=== PATIENT | male | born 1975 | race Caucasian/White ===

== ENCOUNTER 2017-01-16 15:22 | Emergency (ER) | payer MEDICAID, MEDICARE ==
--- NOTE | 2017-01-16 16:17 | ER Document Report ---
HPI - HPI Patient complains to provider of: Red painful nose Onset: This morning Onset/Duration: Gradual Pain Level: 5 Context: 41-year-old male woke up this morning with a red painful nose mostly on the left side including the nostril. No nasal drugs. No history of MRSA. No fever or body aches. Associated Symptoms: None Exacerbated by: Movement Relieved by: Denies Similar symptoms previously: No Recently seen / treated by doctor: No - ROS ROS below otherwise negative: Yes Systems Reviewed and Negative: Yes All other systems reviewed and negative - CARDIOVASCULAR Cardiovascular: DENIES: Chest pain - DERM Skin Color: Normal Past Medical History - General Information source: Patient - Social History Smoking Status: Current Every Day Smoker Chew tobacco use (# tins/day): No Frequency of alcohol use: None Drug Abuse: None Lives with: Family Family History: Reviewed & Not Pertinent Patient has suicidal ideation: No Patient has homicidal ideation: No Renal/ Medical History: Reports: Hx Kidney Stones. Denies: Hx Peritoneal Dialysis Past Surgical History: Reports: Hx Tonsillectomy Vertical Provider Document - CONSTITUTIONAL Agree With Documented VS: Yes Exam Limitations: No Limitations General Appearance: No Apparent Distress - INFECTION CONTROL TRAVEL OUTSIDE OF THE [place] IN LAST 30 DAYS: No - HEENT HEENT: Normocephalic Notes: tender red, warm lower 1/3 of external nose, more tender and darker red left nostril, no abscess palpated or seen with nasal exam. no extension to facial skin. - NECK Neck: Supple. negative: Lymphadenopathy-Left, Lymphadenopathy-Right - RESPIRATORY Respiratory: Breath Sounds Normal, No Respiratory Distress - CARDIOVASCULAR Cardiovascular: Regular Rate, Regular Rhythm Course - Re-evaluation Re-evalutation: 01/16/17 18:00 white count 17,000 with minimal neut shift (79.9) - Laboratory Result Diagrams: 01/16/17 16:45 01/16/17 16:45 Discharge - Discharge Clinical Impression: Nose cellulitis Condition: Good Disposition: HOME, SELF-CARE Instructions: Cellulitis ([facility]), Clindamycin ([facility]), Bactroban Ointment ([facility]) Additional Instructions: warm compress antibiotics three times per day bactroban ointment three times per day return for recheck tomorrow,sooner if fever, spreading to your cheeks Please complete the patient satisfaction survey if you get one, and return it.. If you do not receive a survey, then you can go to the [facility] website, [email or web address] and place your comments about your very good care. Thank you very much. It was a pleasure being your medical provider today. Prescriptions: Clindamycin HCl [Cleocin 150 mg Capsule] 300 mg PO TID #42 capsule Forms: Return to Work
[2017-01-16] MEDS ORDERED: CLINDAMYCIN PHOSPHATE INJ 300 MG/2 ML SDV IV ONE (16:23)
[2017-01-16] MEDS ORDERED: CLINDAMYCIN 600 MG/D5W RTU 600 MG/50 ML RTUPB IV ONE (16:45)
[2017-01-16 17:01] LABS: ABSOLUTE BASOPHILS # (AUTO) 0.1 10^3/uL (0.0-0.2); ABSOLUTE EOSINOPHILS # (AUTO) 0.1 10^3/uL (0.0-0.6); ABSOLUTE LYMPHOCYTES (AUTO) 1.9 10^3/uL (0.5-4.7); ABSOLUTE MONOCYTES (AUTO) 1.3 10^3/uL (0.1-1.4); ABSOLUTE NEUT (AUTO) 13.8 10^3/uL (1.7-8.2); BASOPHILS % (AUTO) 0.7 % (0-2); EOSINOPHILS % (AUTO) 0.7 % (0-6); HEMATOCRIT 53.8 % (37.9-51.0); HEMOGLOBIN 17.8 g/dL (13.5-17.0); HGB HCT DIFFERENCE -0.4; LYMPHOCYTES % (AUTO) 11.1 % (13-45); MEAN CORPUSCULAR HEMOGLOBIN 30.2 pg (27.0-33.4); MEAN CORPUSCULAR HGB CONC 33.1 g/dL (32.0-36.0); MEAN CORPUSCULAR VOLUME 91 fl (80-97); MONOCYTES % (AUTO) 7.6 % (3-13); SEGMENTED NEUTROPHILS % (AUTO) 79.9 % (42-78); WHITE BLOOD COUNT 17.3 10^3/uL (4.0-10.5)
[2017-01-16 17:16] LABS: ALANINE AMINOTRANSFERASE 53 U/L (21-72); ALBUMIN 4.6 g/dL (3.5-5.0); ALKALINE PHOSPHATASE 100 U/L (38-126); ANION GAP 12 (5-19); ASPARTATE AMINO TRANSFERASE 28 U/L (17-59); BILIRUBIN,DIRECT 0.3 mg/dL (0.0-0.4); BILIRUBIN,TOTAL 0.8 mg/dL (0.2-1.3); BLOOD UREA NITROGEN 10 mg/dL (7-20); CARBON DIOXIDE 29 mmol/L (22-30); CHLORIDE 99 mmol/L (98-107); CREATININE RESULT 1.04 mg/dL (0.52-1.25); GLUCOSE 89 mg/dL (75-110); POTASSIUM 4.4 mmol/L (3.6-5.0); SODIUM 140.3 mmol/L (137-145); TOTAL PROTEIN 7.9 g/dL (6.3-8.2)
[2017-01-16] MEDS ORDERED: MUPIROCIN 2% OINTMENT 22 GM TP ONE (17:24)
[2017-01-16 17:52] VITALS: BP 125/77
== END 2017-01-16 18:00 | disposition home or self-care (01) ==
LOC: ER 15:22
DX: J34.0 Abscess, furuncle and carbuncle of nose (principal); J34.89 Other specified disorders of nose and nasal sinuses; F17.200 Nicotine dependence, unspecified, uncomplicated
CPT/HCPCS: 99283; 96365; 36415; 85025; 80053; A9270; J3490

== ENCOUNTER 2017-01-17 12:08 | Emergency (ER) | payer MEDICARE ==
[2017-01-17 12:13] VITALS: BP 125/84
[2017-01-17] MEDS ORDERED: IBUPROFEN 800 MG TABLET PO ONE (12:32)
--- NOTE | 2017-01-17 12:33 | ER Document Report ---
HPI - HPI Patient complains to provider of: Recheck Onset: Yesterday Onset/Duration: Better Quality of pain: No pain Pain Level: Denies Context: Patient states that he was evaluated yesterday for cellulitis involving his nose. Patient denies any trauma to the nose or any insect bites or source of infection. Patient states that he has taken a total of 5 doses of his antibiotic and feels that his nose tenderness, redness and swelling have improved as compared to yesterday. Patient states that he was advised to return here for recheck today from the provider that saw him yesterday. Patient denies any history of MRSA. Associated Symptoms: Other - Nose tenderness, redness Exacerbated by: Denies Relieved by: Denies Similar symptoms previously: No Recently seen / treated by doctor: Yes - ROS ROS below otherwise negative: Yes Systems Reviewed and Negative: Yes All other systems reviewed and negative - CONSTITUTIONAL Constitutional: DENIES: Fever, Chills - EENT Notes: Tenderness, redness to nose - NEURO Neurology: DENIES: Headache, Weakness - GASTROINTESTINAL Gastrointestinal: DENIES: Nausea, Patient vomiting - MUSCULOSKELETAL Musculoskeletal: DENIES: Back Pain, Neck Pain - DERM Skin Color: Erythema Skin Problems: None Past Medical History - General Information source: Patient - Social History Smoking Status: Current Every Day Smoker Frequency of alcohol use: None Drug Abuse: None Occupation: None Lives with: Family Family History: Reviewed & Not Pertinent Patient has suicidal ideation: No Patient has homicidal ideation: No - Medical History Medical History: Other - Partially blind Renal/ Medical History: Reports: Hx Kidney Stones. Denies: Hx Peritoneal Dialysis Past Surgical History: Reports: Hx Tonsillectomy, Other - Ocular surgery Vertical Provider Document - CONSTITUTIONAL Agree With Documented VS: Yes Exam Limitations: No Limitations General Appearance: WD/WN, No Apparent Distress - INFECTION CONTROL TRAVEL OUTSIDE OF THE [place] IN LAST 30 DAYS: No - HEENT HEENT: Atraumatic, Normocephalic - NECK Neck: Normal Inspection, Supple. negative: Lymphadenopathy-Left, Lymphadenopathy-Right - RESPIRATORY Respiratory: Breath Sounds Normal, No Respiratory Distress O2 Sat by Pulse Oximetry: 97 - CARDIOVASCULAR Cardiovascular: Regular Rate, Regular Rhythm, No Murmur - MUSCULOSKELETAL/EXTREMETIES Musculoskeletal/Extremeties: MAEW - NEURO Level of Consciousness: Awake, Alert, Appropriate - DERM Integumentary: Warm, Dry. negative: Abscess Notes: erythema to nose Course - Vital Signs Vital signs: Temp Pulse Resp BP Pulse Ox 97.6 F 70 18 125/84 97 01/17/17 12:12 01/17/17 12:12 01/17/17 12:12 01/17/17 12:12 01/17/17 12:12 Discharge - Discharge Clinical Impression: Nose cellulitis Condition: Stable Disposition: HOME, SELF-CARE Instructions: Cellulitis ([facility]), Anti-Inflammatory Medication ([facility]), Antibiotic Therapy ([facility]), Family Physicians / Practices Additional Instructions: Return immediately for any new or worsening symptoms Followup with your primary care provider, call tomorrow to make a followup appointment Continue your antibiotics as previously prescribed Prescriptions: Naproxen [Naprosyn 250 Nmg Tablet] 1 tab PO BID #14 tablet Referrals: [facility] [Provider Group] - Follow up as needed
== END 2017-01-17 12:40 | disposition home or self-care (01) ==
LOC: ER 12:08
DX: J34.0 Abscess, furuncle and carbuncle of nose (principal); F17.200 Nicotine dependence, unspecified, uncomplicated
CPT/HCPCS: 99283; A9270